=== PATIENT | female | born 1970 | race Two or more races ===

== ENCOUNTER 2025-01-05 12:31 | Emergency (ER) | payer MEDICAID ==
[~2025-01-05] VITALS: Ht 154.9 cm; Wt 60.0 kg
[~2025-01-05 12:31] MED LIST: ALBU18HF2 IH; AMLO10TA80 PO; ATOR20TA65 MT; AZIT500T8 MT; BUDE90AE3 INH; METH4TAB95 MT
[2025-01-05 13:53] LABS: BASOPHILS % 1.0 % (0.0-2.0); EOSINOPHILS % 3.4 % (0.0-5.0); HEMATOCRIT. 38.1 % (36.0-48.0); HEMOGLOBIN. 12.3 g/dL (12.0-16.0); LYMPHOCYTES % 25.3 % (20.0-50.0); MEAN PLATELET VOLUME 8.4 fl (7.4-10.4); MONOCYTES % 7.9 % (2.0-8.0); NEUTROPHILS % 62.4 % (40.0-76.0); PLATELET 298 x1000/uL (130-400); RED BLOOD CELL COUNT 4.55 mill/uL (4.2-5.4); RED CELL DISTRIBUTION WIDTH 13.5 % (11.6-14.6)
[2025-01-05 14:08] LABS: CREATININE 0.8 mg/dL (0.6-1.0); UREA NITROGEN BLOOD 6 mg/dL (9-23)
[2025-01-05 14:09] LABS: TROPONIN I HIGH SENSITIVITY < 4 ng/L (3.0-34)
[2025-01-05] MEDS: KETOROLAC 30MG/ML VIAL IM ONE (17:30)
[2025-01-05] MEDS: DEXAMETHASONE 10 MG/ML VIAL IM ONE (17:30)
[2025-01-05] MEDS: ALBUTEROL (0.083%) 2.5MG/3ML NEB HHN ONE (17:49)
[2025-01-05] MEDS: IPRATROPIUM BROMIDE (0.02%) 0.5MG/2.5ML NEB HHN ONE (17:50)
[2025-01-05 17:54] VITALS: PULSE 85; RESP 20; O2SAT 95
[2025-01-05] MEDS ORDERED: ATOR20TA65 MT (18:04)
[2025-01-05] MEDS ORDERED: P50 MT (18:04)
[2025-01-05] MEDS ORDERED: ALBU18HF2 IH (18:04)
[2025-01-05] MEDS ORDERED: AMLO10TA80 PO (18:04)
[2025-01-05] MEDS ORDERED: AZIT500T8 MT (18:04)
[2025-01-05] MEDS ORDERED: BUDE90AE3 INH (18:04)
[2025-01-05] MEDS ORDERED: PROT40 MT (18:05)
[2025-01-05 19:16] VITALS: BP 148/98; PULSE 92; RESP 20; TEMP 37.1; O2SAT 96
== END 2025-01-05 19:18 | disposition home or self-care (01) ==
LOC: ER 12:52
DX: J45.909 Unspecified asthma, uncomplicated (principal); J06.9 Acute upper respiratory infection, unspecified; I10 Essential (primary) hypertension; E78.5 Hyperlipidemia, unspecified; Z79.51 Long term (current) use of inhaled steroids; Z79.899 Other long term (current) drug therapy
CPT/HCPCS: 80048; 85025; 84484; 36415; 71045; 93005; 94644; 96372; 99285; J1100; J1885; Z7610 ×2; 94070; 94640; 94664; 98960